=== PATIENT | female | born 1965 | race American Indian/Alaskan Native ===

== ENCOUNTER 2017-02-05 14:44 | Emergency (ER) | payer MEDICAID ==
--- NOTE | 2017-02-05 15:01 | EDM.PDOC ---
ED HPI GENERAL MEDICAL PROBLEM - General Chief Complaint: Skin Complaint Stated Complaint: POISON ROSA Time Seen by Provider: 02/05/17 15:00 Source of Information: Reports: Patient, RN, RN notes reviewed History Limitations: Reports: No limitations - History of Present Illness INITIAL COMMENTS - FREE TEXT/NARRATIVE: C/O of poison orsa exposure about 5 days ago. Pt has been using calamine lotion and benadryl but it isn't helping enough. C/O burning and itching with rash to neck, chest, B/L arms and legs. 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: Home treatments, Other medication(s) - Related Data Allergies Allergy/AdvReac Type Severity Reaction Status Date / Time No Known Allergies Allergy Verified 06/22/15 05:49 Home Meds: Home Meds Cholecalciferol (Vitamin D3) [Vitamin D] 1,000 unit PO 09/19/13 [History] Multivitamin [Multivitamins] 1 each PO 09/19/13 [History] Naproxen 500 gm MC BID 09/19/13 [History] Omeprazole 20 mg PO DAILY 09/19/13 [History] PARoxetine [Paxil] 20 mg PO DAILY 09/19/13 [History] Prazosin HCl [Prazosin] 2 mg PO 09/19/13 [History] QUEtiapine [SEROquel] 50 mg PO 09/19/13 [History] QUEtiapine [SEROquel] 200 mg PO BID 09/19/13 [History] Ranitidine [Zantac] 75 mg PO BID 09/19/13 [History] buPROPion HCl [Wellbutrin Xl] 150 mg PO 09/19/13 [History] Past Medical History Cardiovascular History: Reports: Hypertension Gastrointestinal History: Reports: GERD Psychiatric History: Reports: Depression, Schizophrenia Social & Family History - Family History Family Medical History: Noncontributory - Tobacco Use Smoking Status *Q: Current Every Day Smoker Years of Tobacco use: 20 Packs/Tins Daily: 0.5 Second Hand Smoke Exposure: Yes - Alcohol Use Days Per Week of Alcohol Use: 0 - Recreational Drug Use Recreational Drug Use: Yes Drug Use in Last 12 Months: No Recreational Drug Type: Reports: Marijuana/Hashish Recreational Drug Use Frequency: Patient Refuses To Answer Recreational Drug Last Use: Drug screen 06/19/15 positive for marijuana. - Living Situation & Occupation Living situation: Reports: single, with family Occupation: disabled ED ROS GENERAL - Review of Systems Review Of Systems: ROS reveals no pertinent complaints other than HPI. ED EXAM, SKIN/RASH Exam: See Below Exam Limited By: No limitations General Appearance: alert, WD/WN, no apparent distress Ears: normal external exam Nose: normal inspection Throat/Mouth: Normal lips, Normal voice, No airway compromise Head: atraumatic, normocephalic Neck: normal inspection, supple, non-tender, full range of motion Respiratory/Chest: no respiratory distress, lungs clear, normal breath sounds, no accessory muscle use, chest non-tender Cardiovascular: regular rate, rhythm Back Exam: normal inspection Extremities: normal inspection Neurological: alert, oriented, CN II-XII intact, normal cognition, normal gait, no motor/sensory deficits Psychiatric: normal affect, normal mood Skin: Warm, Dry, Rash Location, Skin: neck, chest, upper extremity, right, upper extremity, left, lower extremity, right, lower extremity, left Characteristics: patchy, erythematous, other (excoriated from scratching) Associated features: inflammation Course - Orders/Labs/Meds Orders: Active Orders 24 hr Category Date Time Status diphenhydrAMINE [Benadryl] Med 02/05/17 15:07 Once 25 mg PO ONETIME ONE predniSONE Med 02/05/17 15:08 Once 40 mg PO ONETIME ONE Departure - Departure Time of Disposition: 15:09 Disposition: Home, Self-Care 01 Condition: good Clinical Impression: Poison rosa - Discharge Information Instructions: Poison Rosa Dermatitis, [id number] Forms: ED Department Discharge Additional Instructions: Rx: Zyrtec 10mg Rx: Prednisone 20mg Continue Calamine Lotion as needed until rash goes away. Follow up in clinic in 5 to 7 days if not improved. - My Orders Last 24 Hours: My Active Orders 02/05/17 15:07 diphenhydrAMINE [Benadryl] 25 mg PO ONETIME ONE 02/05/17 15:08 predniSONE 40 mg PO ONETIME ONE - Assessment/Plan Last 24 Hours: My Active Orders 02/05/17 15:07 diphenhydrAMINE [Benadryl] 25 mg PO ONETIME ONE 02/05/17 15:08 predniSONE 40 mg PO ONETIME ONE
[2017-02-05] MEDS ORDERED: diphenhydrAMINE 25 MG Tab PO ONE (15:07)
[2017-02-05] MEDS ORDERED: predniSONE 20 MG Tab PO ONE (15:08)
== END 2017-02-05 15:35 | disposition home or self-care (01) ==
LOC: DL.ED 14:44
DX: L23.7 Allergic contact dermatitis due to plants, except food (principal); F32.9 Major depressive disorder, single episode, unspecified; I10 Essential (primary) hypertension; K21.9 Gastro-esophageal reflux disease without esophagitis; F17.210 Nicotine dependence, cigarettes, uncomplicated; Z79.899 Other long term (current) drug therapy
CPT/HCPCS: 99283; A9270

== ENCOUNTER 2024-06-11 13:19 | Emergency (ER) | payer SELFPAY ==
[2024-06-11 14:03] VITALS: BP 111/63; PULSE 51
[2024-06-11] MEDS: Acetaminophen/HYDROcodone 325-10 MG Tab PO ONE (15:34)
== END 2024-06-11 16:18 | disposition home or self-care (01) ==
LOC: DL.ED 13:19
DX: S76.011A Strain of muscle, fascia and tendon of right hip, initial encounter (principal); S80.01XA Contusion of right knee, initial encounter; I10 Essential (primary) hypertension; K21.9 Gastro-esophageal reflux disease without esophagitis; Z79.899 Other long term (current) drug therapy; W01.0XXA Fall on same level from slipping, tripping and stumbling without subsequent striking against object, initial encounter
CPT/HCPCS: 73560-RT; 73562-RT; 99283; A9270-GY